=== PATIENT | female | born 1995 ===

== ENCOUNTER 2018-08-21 00:02 | Emergency (ER) | payer BC ==
[2018-08-21 00:11] VITALS: BP 119/75; PULSE 83; RESP 18; TEMP 98.6; O2SAT 98
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
== END 2018-08-21 00:53 | disposition home or self-care (01) ==
LOC: SUPCPDRO 00:02 → C.ER 00:02
DX: S60.022A Contusion of left index finger without damage to nail, initial encounter (principal); Y08.89XA Assault by other specified means, initial encounter; Y92.9 Unspecified place or not applicable